=== PATIENT | female | born 1970 | race Caucasian/White ===

== ENCOUNTER 2022-12-26 06:00 | Day surgery (SDC) | payer MEDICAID ==
[~2022-12-26] VITALS: Ht 154.9 cm; Wt 76.7 kg
[2022-12-26 07:46] VITALS: O2SAT 100
[2022-12-26] MEDS: MEPERIDINE 100 MG INJ. 100 MG/ML VIAL ONE ×2 (08:22→08:24)
[2022-12-26] MEDS: MIDAZOLAM HCL 5 MG/5 ML VIAL ONE ×4 (08:22→08:32)
[2022-12-26 15:00] VITALS: BP_SYST 126; PULSE 78; RESP 17
== END 2022-12-26 10:00 | disposition home or self-care (01) ==
LOC: SMU 06:00 → SDS 06:00
PROVIDERS: ATTEND Internal Medicine Gastroenterology
DX: Z12.11 Encounter for screening for malignant neoplasm of colon (principal); D12.2 Benign neoplasm of ascending colon; D12.3 Benign neoplasm of transverse colon; K64.9 Unspecified hemorrhoids; Z85.07 Personal history of malignant neoplasm of pancreas; I10 Essential (primary) hypertension; E78.5 Hyperlipidemia, unspecified; Z79.899 Other long term (current) drug therapy
CPT/HCPCS: 45385; 99152; 88305; G0378; J2250; J2175